=== PATIENT | male | born 1995 | race Caucasian/White ===

== ENCOUNTER 2022-07-02 10:51 | Emergency (ER) | payer SELFPAY ==
[2022-07-02 11:00] VITALS: BP 130/77; PULSE 100; RESP 20; TEMP 37.1; O2SAT 98
--- NOTE | 2022-07-02 11:21 | XR_ITS ---
WS: [id number] views of the left first finger, 07/02/2022 Clinical Data: L thumb Comparison: None. Findings: No fractures or dislocations are seen. There is a radiopaque staple in the subcutaneous tissue of the proximal distal phalanx of the left thumb. The joint spaces are not remarkable. XR/XR finger LT min 2V [id number] Impression: Radiopaque marcell in the soft tissues of left thumb.
--- NOTE | 2022-07-02 11:24 | W.ED.WOUNDLC ---
HPI - Wound/Laceration General: Chief Complaint: Wound/Laceration Stated Complaint: staple in left thumb Time Seen by Provider: 07/02/22 11:21 Source: patient Mode of arrival: ambulatory History of Present Illness: 27-year-old male presents to the emergency room with complaints of staple in his left thumb. Was unsure when the last tetanus shot was he was using a pneumatic stapler and accidentally stapled his thumb. No other injuries. Onset (ago): minute(s) Extremity Location: Left: hand (Thumb) Place: work Patient tetanus UTD: No Context: accidental and self-inflicted assault Associated symptoms: Reports chills, foreign body sensation and inability to move (Staple goes across the proximal interphalangeal joint is unable to move it.); Denies fever(s), nausea or vomiting Review of Systems Const: Reports: chills; Denies: fever(s) Card: Denies: chest pain, edema, dyspnea on exertion or orthopnea Resp: Denies: dyspnea, productive cough or non-productive cough GI: Denies: abdominal pain, nausea, vomiting, hematemesis, coffee ground emesis, diarrhea, constipation, bloating, hematochezia or melena PFSH ED PFSH: Medical History No significant past medical history Surgical History No pertinent past surgical history Social History Smoking and tobacco status: current every day smoker Alcohol intake: current Physical Exam Const: COMMON NORMALS: no acute distress GENERAL APPEARANCE: cooperative and comfortable ORIENTATION/CONSCIOUSNESS: Yes awake, Yes oriented to person, Yes oriented to place and Yes oriented to time HENMT: COMMON NORMALS: normocephalic and atraumatic HEAD & SCALP: normocephalic and atraumatic Resp: COMMON NORMALS: normal respiratory effort, No retractions, No use of accessory muscles and clear to auscultation bilaterally AUSCULTATION: clear to auscultation bilaterally Cardio: COMMON NORMALS: regular rate, regular rhythm and No murmurs present (Cardio) RATE: regular rate RHYTHM: regular rhythm Extremity: OTHER: Breast stable across the dorsal surface of the left thumb it enters laterally on the proximal phalanx extends across the dorsum aspect of the proximal interphalangeal joint at an angle angulating medially and appears the other jayme of the staple is angled out medially and protrudes through the palmar surface of the thumb. As it bridges the interphalangeal joint it leaves him unable to flex it Neuro: SENSORIUM/ORIENTATION: Yes oriented to person, Yes oriented to place and Yes oriented to time Skin: COMMON NORMALS: no rashes or lesions noted GENERAL SKIN EXAM: no rashes or lesions noted Procedures Foreign Body Removal Time Out Performed: yes Site: left and hand (From) Description of foreign body: other (Breast staple, times inch and a half in length overall length of the backbone of the staple 2 and half inch) Technique: manual removal Confirmed by:: direct visualization Complications: none Post-procedure exam: awake, alert Neurovascular: normal capillary fill Nerve Block Nerve Block 1: Time out performed: Yes Local Anesthetic: lidocaine 1% Amount of anesthesia used (mL): 5 Side: left (From) Nerve Blocks: digital Procedure Successful: Yes Patient Tolerated Procedure: well Complications: none Course Vital Signs: Vital signs: Vital Signs Temperature 98.7 F 07/02/22 11:00 Pulse Rate 84 07/02/22 13:44 Respiratory Rate 20 H 07/02/22 11:00 Blood Pressure 134/72 07/02/22 13:44 Pulse Oximetry 98 07/02/22 11:00 MDM - Wound/Laceration Medical Decision Making X-ray shows no fractures. Patient was given prophylactic dose of Ancef digital nerve block carried out the backbone of the staple was incised the arms of the staple had bent at the distal portion and I did not want to try to remove both arms and 1 motion. The distal portion of the staple was removed first within the proximal portion minimal bleeding. Patient is able to flex and extend with because a digital nerve block has no sensation immediately after. Overall tolerated well. Discharged home on Augmentin 875 twice daily for 5 days tetanus is updated follow-up for signs of infection or any difficulty. Medical Records I reviewed the patient's medical records. Lab Data I reviewed the patient's lab results. Radiology Impressions Finger X-Ray 07/02/22 11:21 Impression: Radiopaque marcell in the soft tissues of left thumb. Discharge Plan Discharge Patient Disposition: Home Clinical Impression: Foreign body of finger of left hand Condition: Stable Prescriptions: New amoxicillin-pot clavulanate 875-125 mg tablet 1 tab PO BID Qty: 10 0RF hydrocodone-acetaminophen 5-325 mg tablet 1 tab PO Q6H PRN (Reason: pain) Qty: 10 0RF Discharge Orders: Discharge ED (Routine); Ordered 07/02/22 Ordered By: Edin Delong Discharge Diet: Usual diet Discharge Activity: Increase activity as tolerated Patient Instructions: Opioid Safety, Pain Management Activity Restrictions/Additional Instructions: Ice to the left thumb as needed. If there are any signs of redness infection or purulent drainage return to the emergency room. Oral antibiotics 1 pill twice daily for 5 days. 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
[2022-07-02] MEDS: ceFAZolin 1,000 MG in sodium chloride 0.9% (plus) 50 ML 100 MG IV (11:35)
[2022-07-02] MEDS: tetanus-diphtheria tox (adult) 0.5 mL SDV IM (13:37)
[2022-07-02 13:44] VITALS: BP 134/72; PULSE 84
== END 2022-07-02 13:47 | disposition home or self-care (01) ==
PROVIDERS: Emergency Provider Family Medicine
DX: S61.042A Puncture wound with foreign body of left thumb without damage to nail, initial encounter (principal); W29.8XXA Contact with other powered hand tools and household machinery, initial encounter; Y99.0 Civilian activity done for income or pay
CPT/HCPCS: 64450; 73140; 90471; 90714; 96365; 96366; 99284; J0690

== ENCOUNTER 2024-12-24 00:47 | Emergency (ER) | payer SELFPAY ==
[2024-12-24 00:51] VITALS: BP 133/88; PULSE 100; RESP 18; TEMP 37.1; O2SAT 99; BMI 21.1
[2024-12-24 01:11] LABS: Basophils # 0.1 10^3/uL (0.0-0.1); Basophils % 0.4 %; Hematocrit 54.3 % (37-53); Lymphocytes # 0.8 10^3/uL (0.8-4.8); Lymphocytes % 6.7 %; Mean Corpuscular HGB Conc 34.4 g/dL (30-55); Mean Corpuscular Hemoglobin 29.2 pg (27-33); Mean Corpuscular Volume 84.7 fl (82-101); Mean Platelet Volume 8.5 fL (7.4-10.4); Monocytes # 0.4 10^3/uL (0.2-0.9); Monocytes % 3.5 %; Neutrophils # 10.77 10^3/uL (1.8-7.7); Nucleated Red Blood Cells % 0 %; Platelet Count 319 10^3/cmm (157-399); Red Blood Count 6.41 10^6/uL (3.85-5.65); Red Cell Distribution Width 11.7 % (12.1-15.1)
[2024-12-24] MEDS: ondansetron 2 mg/ML SDV 2 mL 8 MG IVP (01:12)
[2024-12-24] MEDS: sodium chloride 0.9% 1,000 ML 999 ML IV (01:14)
--- NOTE | 2024-12-24 01:19 | ED_ITS ---
HPI - Nausea/Vomiting/Diarrhea 2 General: Chief complaint: Nausea/Vomiting/Diarrhea Stated complaint: Vomating for 12HR Time Seen by Provider: 12/24/24 00:54 History of Present Illness: 29-year-old man who presents emergency r oom with intractable nausea and vomiting for the last 12 hours. He says he thinks this is secondary to alcohol poisoning. He said he had too much to drink. Having some pain in his mid abdomen he thinks from vomiting. No diarrhea. No altered mental status. No chest pain. Related Data Previous Rx's ?Medication ?Instructions ?Recorded amoxicillin 875 mg-potassium 1 tab PO BID #10 tabs 03/16 clavulanate 125 mg tablet hydrocodone 5 mg-acetaminophen 325 1 tab PO Q6H PRN pa in #10 tabs 07/02/22 mg tablet ondansetron 8 mg disintegrating 8 mg PO Q6H #14 tabs 0 12/24/24 tablet promethazine 25 mg rectal 25 mg TX Q6H PRN nausea and 12/24/24 suppository vomiting #12 ea Allergies Allergy/AdvReac Type Severity Reaction Status Date / Time No Known Allergies Allergy Verified 12/24/24 00:57 Review of Systems 2 Narrative: Constitutional symptoms: Negative except as documented in HPI. Skin symptoms: Negative except as documented in HPI. Eye symptoms: Negative except as documented in HPI. ENMT symptoms: Negative except as documented in HPI. Respiratory symptoms: Negative except as documented in HPI. Cardiovascular symptoms: Negative except as documented in HPI. Gastrointestinal symptoms: Negative except as documented in HPI. Genitourinary symptoms: Negative except as documented in HPI. Musculoskeletal symptoms: Negative except as documented in HPI. Neurologic symptoms: Negative except as documented in HPI. Psychiatric symptoms: Negative except as documented in HPI. Endocrine symptoms: Negative except as documented in HPI. PFSH ED 2 PFSH: Medical History No significant past medical history Surgical History No pertinent past surgical history Social History Smoking and tobacco/nicotine status: current every day tobacco/nicotine user Alcohol intake: current Physical Exam 2 Narrative: EXAM NARRATIVE: General: Alert, no acute distress. Skin: Warm, dry. Head: Normocephalic, atraumatic. Neck: Supple, trachea midline. Eye: Extraocular movements are intact. Ears, nose, mouth and throat: Tacky oral mucosa Cardiovascular: Regular, Normal peripheral perfusion. Respiratory: Lungs are clear to auscultation, respirations are non-labored, breath sounds are equal, Symmetrical chest wall expansion. Gastrointestinal: Soft, Nontender, Non distended Musculoskeletal: Normal ROM, no deformity. Neurological: Alert and oriented, No focal neurological deficit observed. Psychiatric: Cooperative, appropriate mood & affect. Course 2 Vital Signs: Vital signs: Vital Signs Temperature 98.8 F 12/24/24 00:51 Pulse Rate 94 12/24/24 02:14 Respiratory Rate 16 12/24/24 02:14 Blood Pressure 96/64 12/24/24 02:14 Pulse Oximetry 99 12/24/24 02:14 Oxygen Delivery Me thod Room Air 12/24/24 02:14 MDM - Nausea/Vomiting/Diarrhea Medical Decision Making Medical decision making: Differential diagnosis for this patient with nausea and vomiting including but not limited to and based on the above HPI, review of systems and physical exam: Urinary tract infection. Appendicitis. Cholecystitis. Colitis. small bowel obstruction. crohn's flare. pancreatitis. gastritis. peptic ulcer. cyclic vomiting. Viral illness. Influenza. COVID. Orders placed to evaluate differential diagnosis based on the above differential, HPI and physical exam Lab Review: Laboratory results were reviewed and interpreted by myself the emergency room physician. No leukocytosis. No anemia. BUN is bit elevated at 23 with a creatinine 1.2 which would indicate some dehydration. Lipase is negative. I reviewed the patient's medical record. Reexamination: Patient has some improvement in his nausea and vomiting. Tolerating small amounts of p.o. Assessment and plan: Nausea and vomiting Dehydration ? Normal saline bolus and 8 mg IV Zofran. Still with some nausea. Compazine and Benadryl IV. - Discharged home - Discussed plan with patient. Answered any questions. - Evaluation and treatment of this problem were appropriate in the emergency setting. Lab Data 12/24/24 01:02 12/24/24 01:02 Laboratory Results WBC 12.10 10^3/uL (3.29-11.43) H 12/24/24 01:02 RBC 6.41 10^6/uL (3.85-5.65) H 12/24/24 01:02 Hgb 18.70 g/dL (11.27-16.99) H 12/24/24 01:02 Hct 54.3 % (37-53) H 12/24/24 01:02 MCV 84.7 fl (82-101) 12/24/24 01:02 MCH 29.2 pg (27-33) 12/24/24 01:02 MCHC 34.4 g/dL (30-55) 12/24/24 01:02 RDW 11.7 % (12.1-15.1) L 12/24/24 01:02 Plt Count 319 10^3/cmm (157-399) 12/24/24 01:02 MPV 8.5 fL (7.4-10.4) 12/24/24 01:02 Neut % (Auto) 89.0 % 12/24/24 01:02 Lymph % (Auto) 6.7 % 12/24/24 01:02 [place] % (Auto) 3.5 % 12/24/24 01:02 Eos % (Auto) 0.0 % 12/24/24 01:02 Baso % (Auto) 0.4 % 12/24/24 01:02 Neut # (Auto) 10.77 10^3/uL (1.8-7.7) H 12/24/24 01:02 Lymph # (Auto) 0.8 10^3/uL (0.8-4.8) 12/24/24 01:02 [place] # (Auto) 0.4 10^3/uL (0.2-0.9) 12/24/24 01:02 Eos # (Auto) 0.0 10^3/uL (0.0-0.8) 12/24/24 01:02 Baso # (Auto) 0.1 10^3/uL (0.0-0.1) 12/24/24 01:02 Nucleated RBC % (auto) 0 % 12/24/24 01:02 Nucleated RBCs # 0.0 /100WBC 12/24/24 01:02 Sodium 145 mmol/L (136-145) 12/24/24 01:02 Potassium 4.3 mmol/L (3.5-5.1) 12/24/24 01:02 Chloride 100 mmol/L (98-107) 12/24/24 01:02 Carbon Dioxide 22 mmol/L (22-29) 12/24/24 01:02 Anion Gap 27.3 (5-19) H 12/24/24 01:02 BUN 23 mg/dL (6-20) H 12/24/24 01:02 Creatinine 1.2 mg/dL (0.7-1.2) 12/24/24 01:02 GFR Calculation 72.6 mL/min (90-130) L 12/24/24 01:02 Glucose 107 mg/dL (65-115) 12/24/24 01:02 Calculated Osmolality 304 mOsm/kg (285-295) H 12/24/24 01:02 Lactic Acid 2.8 mmol/L (0.5-2.2) H 12/24/24 01:02 Calcium 10.2 mg/dL (8.5-10.5) 12/24/24 01:02 Total Bilirubin 0.8 mg/dL (0.15-1.2) 12/24/24 01:02 AST 27 U/L (0-40) 12/24/24 01:02 ALT 28 U/L (0-41) 12/24/24 01:02 Alkaline Phosphatase 97 U/L (40-130) 12/24/24 01:02 Total Protein 9.0 g/dL (6.6-8.7) H 12/24/24 01:02 Albumin 5.4 g/dL (3.5-5.2) H 12/24/24 01:02 Globulin 3.6 g/dL (1.3-4.6) 12/24/24 01:02 Lipase 17 U/L (13-60) 12/24/24 01:02 No radiology studies performed this visit Discharge Plan Discharge Patient Disposition: Home Clinical Impression: Vomiting, Dehydration Condition: Stable Prescriptions: New promethazine 25 mg suppository 25 mg [place] Q6H PRN (Reason: nausea and vomiting) Qty: 12 0RF ondansetron 8 mg tablet,disintegrating 8 mg PO Q6H Qty: 14 0RF Rx Instructions: Take 1/2-1 tab every 6 hours as needed for nausea and vomiting No Action amoxicillin-pot clavulanate 875-125 mg tablet 1 tab PO BID Qty: 10 0RF hydrocodone-acetaminophen 5-325 mg tablet 1 tab PO Q6H PRN (Reason: pain) Qty: 10 0RF Discharge Orders: Discharge ED (Routine); Ordered 12/24/24 Ordered By: Binta Herrera Discharge Diet: Advance as tolerated Discharge Activity: Increase activity as tolerated Patient Instructions: Acute Nausea and Vomiting (ED), Opioid Safety, Pain Management Activity Restrictions/Additional Instructions: Thank you for choosing [facility] for your healthcare needs today. You have been screened and evaluated and felt safe for discharge. Health conditions do change or evolve sometimes and as such it is important that you follow up with your Primary Doctor to be re checked, 3-5 days is a general good time frame for follow up. 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
[2024-12-24 01:27] VITALS: BP 113/68; PULSE 88; RESP 16; O2SAT 99
[2024-12-24 01:27] LABS: Alanine Aminotransferase 28 U/L (0-41); Albumin Level 5.4 g/dL (3.5-5.2); Alkaline Phosphatase 97 U/L (40-130); Anion Gap 27.3 (5-19); Aspartate Amino Transferase 27 U/L (0-40); Blood Urea Nitrogen 23 mg/dL (6-20); Calcium 10.2 mg/dL (8.5-10.5); Carbon Dioxide 22 mmol/L (22-29); Chloride 100 mmol/L (98-107); Creatinine Clr Calc Pharmacy 100.6668; Globulin 3.6 g/dL (1.3-4.6); Glomerular Filtration Rate 72.6 mL/min (90-130); Glucose 107 mg/dL (65-115); Lipase 17 U/L (13-60); Osmolality Calculated 304 mOsm/kg (285-295); Potassium 4.3 mmol/L (3.5-5.1); Sodium 145 mmol/L (136-145); Total Bilirubin 0.8 mg/dL (0.15-1.2)
[2024-12-24 01:28] LABS: Lactic Sepsis W/Reflex 2.8 mmol/L (0.5-2.2)
[2024-12-24] MEDS: prochlorperazine 10 mg/2 mL Inj IVP (02:04)
[2024-12-24] MEDS: diphenhydrAMINE 50 mg/mL SDV 1mL IVP (02:05)
[2024-12-24 02:14] VITALS: BP 96/64; PULSE 94; RESP 16; O2SAT 99
[2024-12-24 02:57] LABS: Reflex Lactate Order REFLEX LACTIC ORDERD
[2024-12-24 03:35] VITALS: BP 98/59; PULSE 87; RESP 16; O2SAT 99
== END 2024-12-24 03:37 | disposition home or self-care (01) ==
PROVIDERS: Emergency Provider Emergency Medicine
DX: R11.10 Vomiting, unspecified (principal); E86.0 Dehydration; Z72.0 Tobacco use
CPT/HCPCS: 36415; 80053; 83605; 83690; 85025; 96374; 96375; 99284; J0780; J1200; J2405; J7030